=== PATIENT | female | born 1935 | race Caucasian/White ===

== ENCOUNTER 2018-07-29 14:03 | Emergency (ER) | payer MEDICARE ==
[~2018-07-29] VITALS: Ht 170.2 cm; Wt 72.6 kg
[2018-07-29 14:22] VITALS: BP 135/81
--- NOTE | 2018-07-29 14:31 | NUR ---
SENT BY DR. PAT DUE TO LEFT FOOT PAIN 12/20 PS. SKIN INTACT. NO OBVIOUS DEFORMITY. NO ACUTE DISTRESS NOTED. FAMILY AND CAREGIVER AT BEDSIDE. READY FOR EVAL.
--- NOTE | 2018-07-29 15:19 | NUR ---
Patient does not wish to proceed with medical care recommended by Dr. OSUNA. Patient given information related to possible complications, up to and including , which could occur as a result of leaving the hospital at this time. Patient verbalizes understanding of risks involved due to leaving against medical advice. Patient has signed AMA form.
== END 2018-07-29 15:19 | disposition left against medical advice (07) ==
LOC: ER 14:03
DX: M25.472 Effusion, left ankle (principal); I10 Essential (primary) hypertension; E78.5 Hyperlipidemia, unspecified; E11.9 Type 2 diabetes mellitus without complications; Z98.890 Other specified postprocedural states
CPT/HCPCS: 73610; 93971; 99284; A4606